=== PATIENT | female | born 1985 | race Caucasian/White ===

== ENCOUNTER 2024-09-19 01:05 | Emergency (ER) | payer SELFPAY ==
[~2024-09-19] VITALS: Ht 162.6 cm; Wt 65.8 kg
[2024-09-19 01:11] VITALS: TEMP 98.9
--- NOTE | 2024-09-19 01:48 | ERN ---
General Chief Complaint: Palpitations Stated Complaint: ANXIETY, PALPITATIONS Time Seen by MD: 01:13 History of Present Illness Initial Comments 38-year-old female with a history of anxiety comes in with a chief complaint of palpitations and anxiety. 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 Patient reports that she had a son experiencing an elevated heart rate into the 120s. Patient reports that she took some Xanax but did call EMS. By the time EMS arrived and took the in she was feeling better. Patient has no complaints at this time. Allergies: Coded Allergies: shellfish derived (Unverified Allergy, Unknown, 09/19/24) Past Medical History Past Medical History: Anxiety Past Surgical History: Cholecystectomy, ROS Dictation Constitutional: Negative for fever,chills, and weight loss Eyes: Negative for injury, pain,redness, and discharge ENT: Negative for injury,pain or swelling Cardiovascular: Negative for chest pain, palpitations, and edema Respiratory: Negative for shortness of breath, cough, and wheezing, Abdomen/GI: Negative for abdominal pain, nausea, vomiting, diarrhea, and constipation Back: Negative for injury and pain : Negative for injury, bleeding and discharge MS/Extremity: Negative for injury and deformity Skin: Negative for rash, and discoloration Neuro: Negative for headache, weakness, numbness, tingling, and seizure Psych: Positive for anxiety Physical Exam Physical Exam Dictation General: Anxious female Head/Face: Normocephalic, atraumatic Eyes: PERRL ENT: oral cavity clear Neck: Trachea midline, supple Cardiovascular: RRR, normal S1/S2 Respiratory: CTAB, no respiratory distress, No rales or wheezes Abdomen: Soft, non-tender, non-distended, normal bowel sounds, no guarding or rebound. Skin: Warm, dry, normal turgor, no rash MS/Extremity: Pulses equal, no cyanosis, neurovascular intact, FROM Neuro: COAx4, GCS 15, strength 5/5, CN 2-12 intact Psych: Anxious female MDM Patient appears to be feeling better and is no longer anxious. Patient would like an EKG. EKG shows normal sinus rhythm with a rate of 55. Patient at this time would like to go home without any further workup. Patient like to follow up with your primary care physician MDM: Differential diagnosis: Anxiety disorder Rationale: Tests considered and ordered secondary to shared decision making include: Previous outside records reviewed: Old ER visits. Risk of complication and/or morbidity or mortality of patient management: None Medications-Per medication reconciliation Need for hospitalization: Patient does not meet criteria for hospitalization. Need for emergency major/minor surgery: No There are no social concerns with this patient. Prescription drug management Prescriptions will include symptomatic care Patient's prior external medical records from other ER visits were reviewed by me as indicated. Prior testing and results from previous visits were reviewed. Prior tests were taken into account with medical decision making and resource utilization, independent historian/historians were used to obtain complete medical history. I independently interpreted the test that were performed, results were reviewed by me and considered findings on radiology if ordered. Medical management and examination interpretation discussions were had by me with other qualified healthcare professionals as indicated for the patient's care. ED Course Orders Procedure Category Date Status Time 12 Lead Ekg Tracing- EKG 09/19/24 Logged Technical 01:37 Vital Signs Date Time Temp Pulse Resp B/P (MAP) Pulse Ox O2 Delivery O2 Flow Rate FiO2 09/19/24 01:11 99.0 74 16 104/71 99 Room Air 0 09/19/24 01:08 99.0 74 16 104/71 99 Room Air* 0 21 DX & DISP Disposition: Discharge Departure Impression: Primary Impression: Anxiety Condition: Stable Additional Instructions: Please follow up with your primary care physician in the next 1-7 days for continuance of care. If you have any return of your anxiety and feel you need assistance please do not hesitate to come to the emergency department. BHAVIN WANG MD Sep 19, 2024 01:48
[2024-09-19 02:00] VITALS: BP 108/72; PULSE 72; RESP 16; O2SAT 99
--- NOTE | 2024-09-20 17:14 | EKG ---
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
== END 2024-09-19 02:01 | disposition home or self-care (01) ==
LOC: EDBD 01:05 → EDH 01:05
DX: F41.9 Anxiety disorder, unspecified (principal); Z90.49 Acquired absence of other specified parts of digestive tract
CPT/HCPCS: 93005; 99283

== ENCOUNTER 2024-09-19 11:05 | Emergency (ER) | payer OTHER ==
[~2024-09-19] VITALS: Ht 162.6 cm; Wt 65.8 kg
--- NOTE | 2024-09-19 11:26 | ERN ---
ED Note History of Present Illness Stated Complaint: PALPATATIONS Time Seen by MD: 11:19 Dictation: PATIENT IS A 38-YEAR-OLD FEMALE COMING IN TODAY WITH HEART PALPITATIONS SHE HAS HAD OFF AND ON FOR SEVERAL DAYS, HAS HAD IT FOR MOST OF HER ADULT LIFE. 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 Allergies: Coded Allergies: shellfish derived (Unverified Allergy, Unknown, 09/19/24) Past Medical History Past Medical History: Anxiety, Other (HEART PALPITATIONS) Surgical History: Cholecystectomy, History: Not Applicable RN Note Reviewed/Agreed w/PFSH: Yes Review of System Dictation CONSTITUTIONAL: NEGATIVE EXCEPT FOR HPI HEAD/FACE: NEGATIVE EXCEPT FOR HPI EENT: NEGATIVE EXCEPT FOR HPI RESPIRATORY: NEGATIVE EXCEPT FOR HPI PALPITATIONS GASTROINTESTINAL/ABDOMINAL: NEGATIVE EXCEPT FOR HPI GENITOURINARY: NEGATIVE EXCEPT FOR HPI MUSCULOSKELETAL: NEGATIVE EXCEPT FOR HPI INTEGUMENTARY: NEGATIVE EXCEPT FOR HPI NEUROLOGICAL/PSYCH: NEGATIVE EXCEPT FOR HPI HEMATOLOGIC/LYMPHATIC: NEGATIVE EXCEPT FOR HPI ALL SYSTEMS NEGATIVE, EXCEPT NOTED ABOVE. 13 POINT REVIEW OF SYSTEMS ASSESSED AND ALL NEGATIVE EXCEPT FOR ABOVE. Initial Vital Sign VS Vital Signs Date Time Temp Pulse Resp B/P (MAP) Pulse Ox O2 Delivery O2 Flow Rate FiO2 09/19/24 11:46 98.8 66 18 144/93 100 09/19/24 12:25 Room Air* 0 21 Physical Exam Dictation VITAL SIGNS REVIEWED GENERAL APPEARANCE: ALERT, ORIENTED X 3, MODERATE/VERY ANXIOUS ACUTE DISTRESS, WELL DEVELOPED, NOURISHED. HEAD AND FACE: NON-TRAUMATIC. EYES: PERRL, PINK CONJUNCTIVAS, EYELID NO TRAUMA, ANTERIOR CHAMBER WITH ARCUS SENILIS. EARS: PINNAS INTACT AND NO SIGNS OF TRAUMA OR ERYTHEMA EAR CANALS CLEAR AND NO DISCHARGE TM NO ERYTHEMA NOSE: NO DISCHARGE, NO BLEEDING. OROPHARYNX: MOUTH NORMAL, TONGUE PINK, PHARYNX CLEAR,NO ERYTHEMA, TONSILS NO EXUDATES, NO ABSCESSES NOTED, MUCOUS MEMBRANE MOIST NECK: SUPPLE, NON-TENDER, NO THYROMEGALY, NO MASSES, NO JVD, NO BRUITS BREAST:DEFERRED CHEST:NO TENDERNESS, NO CREPITUS, NO PARADOXICAL MOVEMENT, NO RETRACTIONS LUNGS:CLEAR, WELL-VENTILATED, SYMMETRIC, NO RALES, NO WHEEZING, NO RHONCHI, NO STRIDOR, GOOD BREATH SOUNDS BILATERALLY HEART: REGULAR RATE, REGULAR RHYTHM, NO MURMUR, NO GALLOPS VASCULAR: NO PERIPHERAL EDEMA, ABDOMEN: SOFT, POSITIVE BOWEL SOUNDS, NONDISTENDED, NO GUARDING, NONTENDER, NO REBOUND, NO MASSES NO HEPATOMEGALY, NO SPLENOMEGALY, NO VILLARREAL'S SIGN, NO HERNIAS. RECTAL: DEFERRED GENITAL: DEFERRED NEUROLOGICAL: NORMAL SPEECH, MOTOR FUNCTION INTACT, SENSORY FUNCTION INTACT MUSCULOSKELETAL: NECK NONTENDER, FULL RANGE OF MOTION, BACK NONTENDER, FULL RAN GE OF MOTION, EXTREMITIES: NONTENDER, FULL RANGE OF MOTION SKIN: COLOR PINK, DRY, NO TURGOR, NO RASH, NO LACERATIONS, NO ABRASIONS, NO CONTUSIONS. LYMPHATIC: DEFERRED Results (Laboratory/Radiology) Laboratory/Radiology Laboratory Tests Test 09/19/24 11:33 White Blood Count 4.9 K/uL (4.8-10.8) Red Blood Count 4.60 MIL/uL (4.00-5.50) Hemoglobin 13.2 g/dL (12.0-16.0) Hematocrit 39.5 % (36-48) Mean Corpuscular Volume 85.9 fL (79-99) Mean Corpuscular Hemoglobin 28.7 pg (27.0-33.0) Mean Corpuscular Hemoglobin Concent 33.4 g/dL (32.0-36.0) Red Cell Distribution Width 12.4 % (11.0-15.5) Platelet Count 245 K/uL (130-400) Mean Platelet Volume 9.9 fL (7.5-10.5) Immature Granulocyte % (Auto) 0.2 % (0-1) Neutrophils (%) (Auto) 58.3 % (40.0-77.0) Lymphocytes (%) (Auto) 32.4 % (21.0-51.0) Monocytes (%) (Auto) 5.7 % (3.0-13.0) Eosinophils (%) (Auto) 2.0 % (0.0-8.0) Basophils (%) (Auto) 1.4 % (0.0-5.0) Neutrophils # (Auto) 2.9 K/uL (1.8-7.7) Lymphocytes # (Auto) 1.6 K/uL (1.0-4.8) Monocytes # (Auto) 0.3 K/uL (0.1-1.0) Eosinophils # (Auto) 0.10 K/uL (0.00-0.70) Basophils # (Auto) 0.07 K/uL (0.00-0.20) Absolute Immature Granulocyte (auto 0.01 K/uL (0-1) Nucleated Red Blood Cells 0.0 % (0.0-0.19) Sodium Level 140 mmol/L (136-145) Potassium Level 4.2 mmol/L (3.5-5.1) Chloride Level 105 mmol/L (101-111) Carbon Dioxide Level 28 mmol/L (21-32) Blood Urea Nitrogen 9 mg/dL (7-18) Creatinine 0.7 mg/dL (0.5-1.0) Glomerular Filtration Rate Calc 114 mL/min (>90) Random Glucose 89 mg/dL (70-105) Total Calcium 8.8 mg/dL (8.5-10.1) Magnesium Level 2.00 mg/dL (1.80-2.40) Troponin I High Sensitivity < 4 ng/L (4-50) L Labs Reviewed?: Yes EKG Comment: EKG NORMAL SINUS RHYTHM/HEART RATE 60/AXIS NORMAL/NO ECTOPY ED Course ED Course Orders Procedure Category Date Status Time Cbc With Differential LAB 09/19/24 Complete 11:23 12 Lead Ekg Tracing- EKG 09/19/24 Logged Technical 11:23 Magnesium LAB 09/19/24 Complete 11:23 Basic Metabolic Panel LAB 09/19/24 Complete 11:23 Troponin I High LAB 09/19/24 Complete Sensitivity 11:23 Vital Signs Date Time Temp Pulse Resp B/P (MAP) Pulse Ox O2 Delivery O2 Flow Rate FiO2 09/19/24 12:25 98.8 62 18 109/69 99 Room Air* 0 21 09/19/24 11:46 98.8 66 18 144/93 100 ONE THOUSAND THREE HUNDRED, NO PALPITATIONS AT THE TIME HEMODYNAMICALLY STABLE. PATIENT DISCHARGED HOME WITH PALPITATIONS AND ANXIETY TOLD TO SEE HER PRIMARY CARE DOCTOR WHEN SHE RETURNS HOME HEART Score Response (Comments) Value History: Low suspicion (0) 0 EKG: Normal 0 Age: < 45yrs (0) 0 Risk Factors: No known risk factors (0) 0 Initial Troponin: Normal limit (0) 0 Total 0 Medical Decision Making MDM MDM: DIFFERENTIAL DIAGNOSIS: ACS/AMI/ANXIETY/ELECTROLYTE IMBALANCE/HYPOMAGNESEMIA/PANIC ATTACK RATIONALE: TESTS CONSIDERED AND ORDERED SECONDARY TO SHARED DECISION MAKING INCLUDE: EKG/LABS PREVIOUS OUTSIDE RECORDS REVIEWED: OLD ER VISITS. REVIEWED RISK OF COMPLICATION AND/OR MORBIDITY OR MORTALITY OF PATIENT MANAGEMENT: NONE MEDICATIONS-PER MEDICATION RECONCILIATION SEE NURSE'S NOTES NEED FOR HOSPITALIZATION: PATIENT DOES NOT MEET CRITERIA FOR HOSPITALIZATION. NO NEED FOR EMERGENCY MAJOR/MINOR SURGERY: NO THERE ARE NO SOCIAL CONCERNS WITH THIS PATIENT. PRESCRIPTION DRUG MANAGEMENT NONE PRESCRIPTIONS WILL INCLUDE SYMPTOMATIC CARE PATIENT'S PRIOR EXTERNAL MEDICAL RECORDS FROM OTHER ER VISITS WERE REVIEWED BY ME INDICATED. PRIOR TESTING AND RESULTS FROM PREVIOUS VISITS WERE REVIEWED. PRIOR TESTS WERE TAKEN INTO ACCOUNT WITH MEDICAL DECISION MAKING AND RESOURCE UTILIZATION, INDEPENDENT HISTORIAN/HISTORIANS WERE USED TO OBTAIN COMPLETE MEDICAL HISTORY. I INDEPENDENTLY INTERPRETED THE TEST THAT WERE PERFORMED, RESULTS WERE REVIEWED BY ME AND CONSIDERED FINDINGS ON RADIOLOGY IF ORDERED. MEDICAL MANAGEMENT AND EXAMINATION INTERPRETATION DISCUSSIONS WERE HAD BY ME WITH OTHER QUALIFIED HEALTHCARE PROFESSIONALS INDICATED FOR THE PATIENT'S CARE. DX & DISP Disposition: Discharge Departure Impression: Primary Impression: Palpitations Additional Impression: Panic attack Condition: Stable Additional Instructions: FOLLOW-UP WITH PRIMARY CARE PROVIDER IN 1 TO 2 DAYS. TAKE MEDICATIONS D IRECTED HERE IN THE EMERGENCY ROOM. OKAY TO CONTINUE HOME MEDICATIONS UNLESS OTHERWISE DISCUSSED DURING YOUR VISIT IN THE EMERGENCY ROOM TODAY. RETURN TO YOUR NEAREST EMERGENCY ROOM IF SYMPTOMS WORSEN OR IF THERE IS NO IMPROVEMENT. CALL 911 IF YOU NEED IMMEDIATE ASSISTANCE. TAKE TYLENOL OR MOTRIN OPSE-[id number]-[id number] NEEDED AND IF NO CONTRAINDICATIONS ARE PRESENT. INCREASE ORAL HYDRATION. A WOUND CULTURE OR URINE CULTURE WAS ORDERED HERE IN THE EMERGENCY ROOM DEPARTMENT PLEASE FOLLOW-UP WITH PRIMARY CARE PROVIDER AND ADVISE THEM TO GET REPEAT PORTS FROM OUR FACILITY. IF YOU HAD ANY AJAY WRAP/SPLINTS THAT WERE APPLIED HERE, PLEASE DO NOT REMOVE THEM UNTIL YOU SEE YOUR PRIMARY CARE OR SPECIALTY. SUGGEST NO COFFEE, SODA POP, NO STIMULANTS OF ANY KIND UNTIL YOU SEE YOUR PRIMARY CARE DOCTOR WHEN YOU RETURN HOME. OTHERWISE DIET AND ACTIVITY TOLERATED. Referrals: SELF,REFERRAL (PCP) Time of Disposition: 13:01 I have reviewed the case, and I agree with, Diagnosis and Plan I reviewed the EKG. It shows sinus rhythm at 60 without ectopy. Morphology normal SALONI JIMENEZ NP Sep 19, 2024 11:26 ODILIA CHEW MD Sep 19, 2024 13:07
[2024-09-19 11:37] LABS: BASOPHILS # (AUTO) 0.07 K/uL (0.00-0.20); BASOPHILS % (AUTO) 1.4 % (0.0-5.0); HEMATOCRIT 39.5 % (36-48); IMMATURE GRANULOCYTE ABSOLUTE 0.01 K/uL (0-1); LYMPHOCYTES # (AUTO) 1.6 K/uL (1.0-4.8); LYMPHOCYTES % (AUTO) 32.4 % (21.0-51.0); MEAN CORPUSCULAR HEMOGLOBIN 28.7 pg (27.0-33.0); MEAN CORPUSCULAR HGB CONC 33.4 g/dL (32.0-36.0); MEAN CORPUSCULAR VOLUME 85.9 fL (79-99); MONOCYTES # (AUTO) 0.3 K/uL (0.1-1.0); MONOCYTES % (AUTO) 5.7 % (3.0-13.0); NEUTROPHILS # (AUTO) 2.9 K/uL (1.8-7.7); NEUTROPHILS % (AUTO) 58.3 % (40.0-77.0); PLATELET COUNT (AUTO) 245 K/uL (130-400); RED CELL DISTRIBUTION WIDTH 12.4 % (11.0-15.5); WHITE BLOOD COUNT (AUTO) 4.9 K/uL (4.8-10.8)
[2024-09-19 11:45] LABS: CREATININE 0.7 mg/dL (0.5-1.0); POTASSIUM 4.2 mmol/L (3.5-5.1)
[2024-09-19 13:22] VITALS: BP 119/67; PULSE 69; RESP 18; TEMP 98.8; O2SAT 98
--- NOTE | 2024-09-20 17:20 | EKG ---
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
== END 2024-09-19 13:30 | disposition home or self-care (01) ==
LOC: EDH 11:05
DX: R00.2 Palpitations (principal); F41.0 Panic disorder [episodic paroxysmal anxiety]; Z90.49 Acquired absence of other specified parts of digestive tract
CPT/HCPCS: 36415; 80048; 83735; 84484; 85025; 93005; 99284